=== PATIENT | female | born 1960 | race Caucasian/White ===

== ENCOUNTER → 2018-09-23 15:45 | Outpatient (CLI) | payer OTHER, SELFPAY ==
--- NOTE | 2018-09-23 | DI.MRI.S_ITS ---
PROCEDURE: MR LOWER LEG RT WO CON INDICATIONS: INTERNAL DERANGEMENT OF RIGHT KNEE,PAIN RIGHT TIBIA TECHNIQUE: Noncontrast coronal and sagittal T1 spin echo and STIR; axial T1 spin echo and T2 fast spin echo with fat saturation through the right leg. COMPARISON: None. FINDINGS: Image quality: Excellent. Bones: The visualized bone marrow demonstrates normal signal on all sequences. The overlying cortex appears intact. No fractures lines or intra-osseous lesions. Soft tissues: The scanned muscles demonstrate normal overall bulk and internal signal. Subcutaneous tissues appear normal as well. No soft tissue masses are present. There is a small knee joint effusion and small Oreilly's cyst. There is split type tearing of the peroneus brevis tendon. Small amount of fluid surrounds the peroneus longus and brevis tendons. Prepatellar subcutaneous edema. IMPRESSION: 1. Small Oreilly's cyst. Small knee joint effusion. 2. Prepatellar bursitis. 3. Lateral flexor tenosynovitis. Split type tearing of the peroneus brevis tendon. 4. If there is clinical evidence for internal derangement of the knee, dedicated knee MRI is recommended for further assessment. 5. No osseous abnormality. Dictated by: Sukumar Felix M.D. on 09/23/2018 at 16:56 Approved by: Sukumar Felix M.D. on 09/23/2018 at 17:01
== END ==
PROVIDERS: PCP Physician Assistant Medical; Visit Provider Orthopaedic Surgery
DX: M23.91 Unspecified internal derangement of right knee (principal); M25.561 Pain in right knee; M71.21 Synovial cyst of popliteal space [Baker], right knee; M71.561 Other bursitis, not elsewhere classified, right knee; M65.861 Other synovitis and tenosynovitis, right lower leg; M25.461 Effusion, right knee
CPT/HCPCS: 73718

== ENCOUNTER → 2021-08-02 09:48 | Outpatient (CLI) | payer BC, SELFPAY ==
--- NOTE | 2021-08-02 09:49 | DI.NM.S_ITS ---
PROCEDURE: NM HIDA NO EJECTION FRACTION RADIOPHARMACEUTICAL: 4.9 mCi Tc-99m mebrofenin IV. INDICATIONS: epigastric /upper abd pain ? meal related r/o GB dyskinesia TECHNIQUE: Following intravenous administration of Tc-99m mebrofenin, sequential anterior abdominal images were obtained through at least 60 minutes. COMPARISON: None. FINDINGS: There is normal tracer uptake and excretion by the liver. There is normal visualization of intrahepatic ducts, common bile duct, and the gallbladder. There is normal tracer excretion into duodenum. Ejection fraction of the gallbladder is 80% over 35 minutes. IMPRESSION: No evidence of cholecystitis. Dictated by: Sukumar Felix M.D. on 08/02/2021 at 13:38 Approved by: Sukumar Felix M.D. on 08/02/2021 at 13:39
== END ==
PROVIDERS: PCP Family Medicine; Referring Provider Specialist; Visit Provider Specialist
DX: R10.13 Epigastric pain (principal)
CPT/HCPCS: 78226; A9537

== ENCOUNTER → 2021-08-16 09:51 | Outpatient (CLI) | payer OTHER, SELFPAY ==
[2021-08-16 11:20] LABS: COVID19 -Nasal RAPID Negative (Negative)
== END ==
PROVIDERS: PCP Family Medicine; Visit Provider Specialist
DX: Z20.822 Contact with and (suspected) exposure to COVID-19 (principal); Z01.812 Encounter for preprocedural laboratory examination
CPT/HCPCS: 87635; C9803

== ENCOUNTER 2021-08-17 07:39 | Day surgery (SDC) | payer OTHER, SELFPAY ==
--- NOTE | 2021-08-17 | PATH_ITS ---
[facility] Accession Number: [id number] . 01 Material submitted: . gastrointestinal site - GASTRIC POLYP . 02 Diagnosis: Stomach, Polyp, Biopsy: Fundic gland polyp. No evidence of Helicobacter organisms on H/E stain. Negative for intestinal metaplasia. Negative for dysplasia and malignancy. MRV 08/20/2021 1330 Local . 02 Electronically signed: . Yin Joe MD, Pathologist NPI- [id number] . 01 Gross description: . GASTRIC POLYP: Received in formalin are multiple fragment(s) of bundy, soft tissue measuring 2.0 x 0.7 x 0.2 cm in aggregate submitted entirely in 1 cassette(s) /DANNI 08/18/2021 0453 Local . 02 Pathologist provided ICD-10: R10.13 . 02 CPT . 670180 Performed at: 01 [facility] [address], [place], [place] [id number] MD Bobby Rojas MD Phone: [phone] Performed at: [address] [facility] [address] [place], [place] [id number] MD Yin Joe MD Phone: [phone]
[2021-08-17 07:56] VITALS: BP 150/92; PULSE 82; RESP 16; TEMP 36.1; O2SAT 96; BMI 31.1
[2021-08-17] MEDS: LACTATED RINGERS 1,000 ML 200 ML IV (08:07)
--- NOTE | 2021-08-17 08:54 | PM.HP.1 ---
History of Present Illness History of Present Illness Chief complaint: EGD Narrative: The patient is a woman here for an EGD. She has symptoms of reflux disease. She had a negative HIDA scan. Her symptoms are incompletely removed by acid suppression Carafate. She is brought in to evaluate to see if there is any other problem. Patient History Medical History Borderline hypertension GERD (gastroesophageal reflux disease) Hiatal hernia Hypothyroid Family & Social History Family History Mother Hypertension Father Hypertension Heart disease Sister Ovarian cancer Social History: household members spouse lives independently Yes Tobacco & Substance use: Smoking Status Never smoker alcohol intake current alcohol intake frequency a few times a month Substance Use Type does not use Meds Home Medications and Allergies Home Medications Medication Instructions Recorded Confirmed Type [id number] SR See Rx Instructions .ROUTE .COMPLEX 07/05/21 08/17/21 History hydrochlorothiazide 12.5 mg tablet 12.5 mg PO DAILY 07/05/21 08/17/21 History omeprazole 40 mg capsule,delayed 40 mg PO BID 07/05/21 08/17/21 History release potassium See Rx Instructions .ROUTE .COMPLEX 07/05/21 07/05/21 History Allergies Allergy/AdvReac Type Severity Reaction Status Date / Time No Known Drug Allergies Allergy Verified 08/17/21 07:51 Review of Systems Review of Systems Narrative: No cough cold. No chest pain other than burning from her reflux. No heart problems. No seizures blackouts. Exam Vital Signs (past 8 hours): - 08/17/21 07:56 Temperature 97 F L Pulse Rate 82 Respiratory Rate 16 Blood Pressure 150/92 H Pulse Oximetry 96 Oxygen Delivery Method Room Air Oxygen Flow Rate 0 Narrative Exam Narrative: Pleasant cooperative patient no apparent distress. Lungs are clear to auscultation. No rales or rhonchi. Heart regular rate and rhythm no murmur gallop. Abdomen is soft nontender without mass. No obvious hernias. Patient is alert and oriented x3. Assessment & Plan Assessment and plan (1) History of peptic ulcer disease: Status: Acute (2) Epigastric pain: Status: Acute Assessment & Plan narrative: Patient for an EGD. She has had a negative gallbladder workup which included ultrasound and HIDA scan. I have discussed the procedure including risks of bleeding perforation. She appears to understand wishes to proceed. Time Spent With Patient Critical Care time: I spent a total of [] minutes of critical care time on this patient's care today; this time is exclusive of procedural time.
--- NOTE | 2021-08-17 08:57 | PM.PREOP ---
Pre-operative Note COVID-19 COVID-19 status: Negative Result date/Date tested (Pos, Neg/Pending): 08/16/21 Interval Note History & Physical reviewed/Exam performed by Physician: Yes Changes to H&P: No ASA Class (for procedural sedation): II
[2021-08-17] MEDS: LIDOCAINE 4% SOLN 50 ML 20 ML TOP (09:00)
[2021-08-17] MEDS: MIDAZOLAM 5 MG/5 ML VIAL IV (09:05)
[2021-08-17] MEDS: fentaNYL 250 MCG/5 ML INJ IV (09:05)
--- NOTE | 2021-08-17 09:17 | PM.OP.EGD ---
Operative Date/Time/Diagnoses Date of procedure: 08/17/21 Time of procedure: 09:18 Pre-op diagnosis: Severe epigastric pain despite medication. Chronic reflux. Post-op diagnosis: same (Hiatal hernia. Numerous gastric polyps with the appearance of benign gastric fundic polyps) Procedure & Clinicians Study performed: EGD with cold biopsy Same procedure as scheduled: Yes Indications: Determine cause of patient's continued symptoms despite treatment Surgeon: Bayron Arana Procedure Notes SCOAP/Timeout: Performed Procedure in detail: The patient had topical anesthetic applied to oropharynx. She was placed in the left lateral decubitus position and underwent IV sedation directed by the surgeon consisting of fentanyl and Versed. A bite block was inserted and the scope was advanced through it into the esophagus. The esophagus was unremarkable. GE junction was noted at 34 cm from the incisors. The the patient had a hiatal hernia. stomach insufflated well. There were numerous polyps that appeared to be gastric fundic polyps some quite large in size seen scattered across the proximal and middle stomach. The pyloric channel was patent. The duodenum was unremarkable to the 4th part. Scope was brought back into the stomach and retroflexed. The proximal stomach confirmed the presence of a hiatal hernia. There were no polyps immediately in the area of the GE junction. Multiple polyps were biopsied both large and small. Specimens were submitted. The scope was straightened and brought out through the esophagus again. The hiatal hernia measured approximately 2 cm in length. There was no evidence of Alcantara's esophagus. The GE junction was sharp. No other Lesions were seen. The scope was removed and the patient tolerated the procedure well. Sedation minutes: 14 Findings: hiatal hernia Specimen(s): other (Polyp biopsies.) Complications: none Post-procedure Recommendations: Continue medication(s) Plan for aftercare: I will call with biopsy results Disposition: PACU
[2021-08-17 09:19] VITALS: BP 106/72; PULSE 76; RESP 16; TEMP 36.5
[2021-08-17 09:28] VITALS: BP 135/83; PULSE 77; RESP 16; O2SAT 96
[2021-08-17 09:33] VITALS: BP 104/76; PULSE 67; RESP 16; TEMP 36.4; O2SAT 96
== END 2021-08-17 10:07 | disposition home or self-care (01) ==
PROVIDERS: PCP Family Medicine; Referring Provider Specialist; Visit Provider Specialist
PROC: 0DJ08ZZ Inspection of Upper Intestinal Tract, Via Natural or Artificial Opening Endoscopic (ICD-10-PCS; CPT 43235; principal; 2021-08-17 08:45)
DX: R10.13 Epigastric pain (principal); K21.9 Gastro-esophageal reflux disease without esophagitis; E03.9 Hypothyroidism, unspecified; K44.9 Diaphragmatic hernia without obstruction or gangrene; K31.7 Polyp of stomach and duodenum
CPT/HCPCS: 43239; 99152; J2250; J3010